=== PATIENT | female | born 1955 | race Caucasian/White ===

== ENCOUNTER 2016-12-17 10:10 | Emergency (ER) | payer SELFPAY ==
[~2016-12-17] VITALS: Ht 167.6 cm; Wt 90.9 kg
[2016-12-17 10:24] VITALS: BP 203/111; PULSE 97; RESP 16; O2SAT 99
--- NOTE | 2016-12-17 10:38 | ED.REPORT ---
HPI-General Illness Date of Service Dec 17, 2016 ED Provider: Km Bennett MD Patient is a 61 year old female who presents to the ED with severe lightheaded, nonvertiginous dizziness that began yesterday morning. Patient was seen at Urgent Care for an episode of dizziness associated with nausea, one episode of emesis, chills, decreased appetite and a hypertensive episode. She also reports a sudden onset near-syncopal episode yesterday with diaphoresis. The patient's dizziness/lightheadedness is exacerbated when the patient stands up quickly. Patient has been pushing fluids with no relief. She denies any diarrhea, constipation, fever, headache, chest pain, SOB, visual disturbances, hearing disturbances, dysuria, black/tarry stool, hematemesis, hematochezia, abdominal pain or decreased fluid intake. Nursing Notes Stated Complaint: DIZZINESS,NAUSEA,HIGH BP Chief Complaint: General Complaint Nursing Notes Reviewed: Yes Allergies: Coded Allergies: codeine (Verified Adverse Reaction, Severe, Nausea,Vomiting, 12/17/16) General Time Seen by MD: 10:32 Chief Complaint Dizziness Hx Obtained From: Patient Arrived By: Walk-in Sudden in Onset?: No Onset Occurred: 1 - 4 hours ago Symptom Duration: Since onset Associated with: Reports: Dizziness, Nausea, Vomiting, Denies: Abdominal pain, Chest pain, Fever, Headache, Numb extremities, Shortness of breath, Syncope, Weakness Pertinent Negative: Pt denies other symptoms Recent Healthcare: No recent doctor visit, No recent hospitalization Past Medical History Past Medical History None reported. Past Surgical History None reported. Smoking History Unknown if Ever Smoker Social History Other Social History: Good social support, Local resident Ambulatory Status Independent Review of Systems + decreased appetite - decreased fluid intake Full Review of Systems Constitutional: Reports: Chills, Denies: Fever Ears / Nose / Throat: Denies: Hearing loss bilateral Respiratory: Denies: Shortness of breath Cardiovascular: Denies: Chest pain GI: Reports: Nausea, Vomiting, Denies: Abdominal pain, Bloody/tarry stool, Constipation, Diarrhea, Hematemesis, Hematochezia Neurologic: Reports: Dizziness, Lightheaded, Denies: Headache, Numbness, Syncope, Vision change Complete sys rev & neg: except as marked. Physical Exam Vital Signs Vital Signs Date Time Temp Pulse Resp B/P Pulse Ox O2 Delivery O2 Flow Rate FiO2 12/17/16 12:31 74 14 172/72 100 Room Air 12/17/16 10:50 90 19 177/100 100 Room Air 178/101 177/99 12/17/16 10:24 36.8 97 16 203/111 99 Room Air Initial VS: Reviewed Neck: Supple, Non-tender, Full range of motion Extremities: Vascular intact, Neuro intact, No swelling, No tenderness Skin: Warm, Dry, No cyanosis Psychiatric: Mood/affect normal, Behavior normal, Normal thought content General/Constitutional: Awake, Alert, No acute distress, Well appearing, Well developed Head / Eyes: Atraumatic, Normocephalic, PERRL ENT: Atraumatic, Airway patent, Pharynx NL Mouth: Positive: Mucous membranes dry Respiratory / Chest: Atraumatic, Breath sounds NL, Breath sounds = bilat, No respiratory distress Cardiovascular: Heart rate NL, Regular rhythm, Heart sounds NL, No gallop, No murmurs, No rubs, Peripheral circulation NL, Pulses = bilaterally Abdomen: Atraumatic, Soft, Non-tender, No distention Neurologic: Oriented X3, Speech NL, No motor deficits, No sensory deficits, CN II - XII intact, Reflexes equal bilat, Cerebellar NL, Memory NL, Gait NL Cerebellar Dysfunction: Negative: Finger-nose abnl Negative [facility] Interpretation & Diagnostics Lab Results Interpretation Result Diagram: 12/17/16 1040 12/17/16 1040 Test 12/17/16 10:40 White Blood Count 11.0th/mm3 (3.8-10.1) Red Blood Count 5.13mil/mm3 (3.90-5.20) Hemoglobin 14.5g/dL (12.0-15.6) Hematocrit 43.6% (35.0-46.0) Mean Corpuscular Volume 85.0fL (81-100) Mean Corpuscular Hemoglobin 28.3pg (27.0-35.0) Mean Corpuscular Hemoglobin Concent 33.3% (32.0-37.0) Red Cell Distribution Width 13.2% (12.3-15.4) Platelet Count 266bil/L (150-400) Neutrophils (%) (Auto) 77.6% (40-74) Lymphocytes (%) (Auto) 16.9% (14-46) Monocytes (%) (Auto) 4.6% (4-12) Eosinophils (%) (Auto) 0.4% (0-5) Basophils (%) (Auto) 0.2% (0-3) Sodium Level 138mEq/L (134-144) Potassium Level 3.8mEq/L (3.5-5.2) Chloride Level 100mEq/L (97-108) Carbon Dioxide Level 20mmol/L (18-29) Blood Urea Nitrogen 12mg/dL (8-27) Creatinine 0.77mg/dL (0.57-1.00) Estimat Glomerular Filtration Rate 109mL/min (>59) Glucose Level 147mg/dL (60-99) Calcium Level 9.7mg/dL (8.5-10.1) Magnesium Level 2.1mg/dL (1.6-2.6) Total Bilirubin 0.4mg/dL (0.0-1.2) Aspartate Amino Transf (AST/SGOT) 16U/L (0-50) Alanine Aminotransferase (ALT/SGPT) 22U/L (0-32) Alkaline Phosphatase 105U/L (25-165) Troponin T 0.010ug/L (0.0-0.011) Total Protein 8.1g/dL (6.4-8.4) Albumin 4.5g/dL (3.4-5.0) Hold Akhtar Top Tube Received (Received) ECG Interpretation ECG Interpretation: Sinus Rhythm Rate 77 bpm Left axis deviation Normal intervals No acute ST changes No T wave abnormalities No prior to comparison Time: 10:33 Interpreted by: ED physician X-Ray Chest Interpretation Chest Xray Interpretation: IMPRESSION: No acute cardiopulmonary disease. Dictated by: Edmond Boggs M.D. on 12/17/2016 at 11:19 Interpretation / Wet Read by: Interpret - Radiologist Re-Eval/Medical Decision Med Decision/Clinical Course Patient is a 61 year old female who presents to the ED with severe lightheaded, nonvertiginous dizziness that began yesterday morning. Patient was seen at Urgent Care for an episode of dizziness associated with nausea, one episode of emesis, chills, decreased appetite and a hypertensive episode. She also reports a sudden onset near-syncopal episode yesterday with diaphoresis. The patient's dizziness/lightheadedness is exacerbated when the patient stands up quickly. Patient has been pushing fluids with no relief. She denies any diarrhea, constipation, fever, headache, chest pain, SOB, visual disturbances, hearing disturbances, dysuria, black/tarry stool, hematemesis, hematochezia, abdominal pain or decreased fluid intake. The emergency department the patient is afebrile with stable vital signs and examination as above she is notably hypertensive in the 170s systolic. There are no lateralizing neurologic symptoms. Orthostatic vital signs are notable for greater than 20 point increase in heart rate though her blood pressure remained stable. EKG Sinus Rhythm Rate 77 bpm Left axis deviation Normal intervals No acute ST changes No T wave abnormalities No prior to comparison Chest x-ray: No acute cardiopulmonary disease. Laboratory studies notable as below: Leukocytosis - 11 Hct 43.6 CMP unremarkable Troponin negative Positive orthostatic vital signs HR 86-108 with standing BP unchanged Upon examination the patient appears somewhat dehydrated. She was treated with IV fluids and reported significant symptomatic improvement. Overall presentation is not 100% convincing of dehydration though this seems like the most likely etiology of her symptoms. There is no evidence of blood loss or acute ischemic stroke. Her dizziness is not vertiginous in nature and neurologic examination is normal. Notably she has a negative Romberg test, normal gait and no dysmetria on finger to nose examination and no pronator drift. In the setting of her hypertension I did consider hypertensive emergency /urgency in her differential diagnosis in this remains a possibility. I discussed with the patient that I would like to admit her for further management of her blood pressure and observation however she declines to have this done. She refuses to have this done. She states that she will follow up first thing on Monday with her primary care doctor about her blood pressure management. She demonstrates is decisional capacity and states that she feels better and would like to go home. Prior to discharge follow-up and return precautions were reviewed in detail with the patient who verbalized understanding and agreement with the plan. The patient was discharged in stable condition. Time of Eval: 12:12 Patient Status: Condition improved Re-Evaluation/Progress Note: Symptoms improved following a liter of fluid. She is informed of all of her results. Discussed intended treatment plan. All of the pateint's questions are addressed. She understands and agrees with the treatment plan. Counseled Regarding: Diagnosis, Lab results, Need for follow-up, When/why to return to ED Discharge & Departure Primary Impression: Orthostatic lightheadedness Additional Impressions: Dehydration Hypertension Hypertension type: unspecified secondary hypertension Qualified Code: I15.9 - Secondary hypertension, unspecified Leukocytosis Leukocytosis type: unspecified Qualified Code: D72.829 - Elevated white blood cell count, unspecified Disposition: Home Discharge Condition All VS Reviewed: Yes Condition: Improved Patient Instructions: Dehydration (ED) Additional Instructions: Thank you for seeking care at emergency room. It is difficult for us to make definitive diagnoses in the ED but we believe that you are experiencing dehydration. Our primary goal today in the ED was to evaluate you for any life-threatening conditions. Your evaluation was reassuring. I recommend that you use Pedialyte to replace your electrolytes and improve your dehydration. You should follow-up with your primary doctor in the next week. You should return to the ED immediately if you develop fevers, vomiting, cough , shortness of breath, chest pain, lightheadedness, weakness or any other concerning signs or symptoms. Referrals: [facility] Scribe Attestation Portions of this note were transcribed by Elvie Jones. I, Dr. Bennett personally performed the history, physical exam and medical decision-making; I reviewed and confirmed the accuracy of the information in the transcribed note. Signed by: Minh Meeks, 12/17/16 1213. Km Bennett MD Dec 17, 2016 10:38 ELVIE JONES Dec 17, 2016 10:45
[2016-12-17 10:50] VITALS: BP_SYST 177; BP_SYST 178; BP_DIAS 100; BP_DIAS 101; BP_DIAS 99; PULSE 90; RESP 19; O2SAT 100
[2016-12-17 10:54] LABS: BASOPHILS % (AUTO) 0.2 % (0-3); EOSINOPHILS % (AUTO) 0.4 % (0-5); MONOCYTES % (AUTO) 4.6 % (4-12); Mean Corpuscular Hemoglobin 28.3 pg (27.0-35.0); NEUTROPHILS % (AUTO) 77.6 % (40-74); Platelet Count 266 bil/L (150-400)
[2016-12-17] MEDS ORDERED: 0.9% Sodium Chloride 1,000 ML IV ONE (11:05)
[2016-12-17 11:15] LABS: TROPONIN T 0.01 ug/L (0.0-0.011)
--- NOTE | 2016-12-17 11:22 | DRSVH ---
PROCEDURE: X-RAY CHEST ONE VIEW, PORTABLE ([id number]) INDICATIONS: Chest pain. TECHNIQUE: One view of the chest was acquired. COMPARISON: None. FINDINGS: Surgical changes and devices: None. Lungs and pleura: No pleural effusions or pneumothorax. Lungs are clear. Mediastinum: Mediastinal contours appear normal. Heart size is normal. Bones and chest wall: No suspicious bony lesions. Overlying soft tissues appear unremarkable. IMPRESSION: No acute cardiopulmonary disease. Dictated by: Edmond Boggs M.D. on 12/17/2016 at 11:19 Approved by: Edmond Boggs M.D. on 12/17/2016 at 11:19
[2016-12-17 11:27] LABS: Magnesium 2.1 mg/dL (1.6-2.6)
[2016-12-17 12:31] VITALS: BP 172/72; PULSE 74; RESP 14; O2SAT 100
== END 2016-12-17 12:32 | disposition home or self-care (01) ==
LOC: SED 10:10
DX: E86.0 Dehydration (principal); I15.9 Secondary hypertension, unspecified; D72.829 Elevated white blood cell count, unspecified; Z88.5 Allergy status to narcotic agent
CPT/HCPCS: 36415; 71010; 80053; 82948; 83735; 84484; 85025; 93005; 96360; 99285; J7030